=== PATIENT | female | born 1990 | race Native Hawaiian/Other Pacific Islander ===

== ENCOUNTER 2016-11-20 09:32 | Emergency (ER) | payer OTHER ==
[~2016-11-20] VITALS: Ht 160 cm; Wt 58.1 kg
[2016-11-20 10:00] VITALS: BP 128/77
--- NOTE | 2016-11-20 10:00 | NUR ---
PATIENT PRESENTS TO ED WITH C/O RIGHT ABDOMINAL PAIN X 3 DAYS, ON HER PERIOD STILL SPOTTING X 2 WKS; PER PT VAG WHITE FOUL SMELLING DISCHARGE; DENIES N/V/D HX; DENIES RX; DENIES DENIES N/V/D; SKIN IS PINK/WARM/DRY; AAOX4 WITH EVEN AND STEADY GAIT; LUNGS CLEAR BL; HR EVEN AND REGULAR; PT DENIES ANY FEVER, CP, SOB, OR COUGH AT THIS TIME; PATIENT STATES PAIN OF 9/10 AT THIS TIME; VSS; PATIENT POSITIONED FOR COMFORT; HOB ELEVATED; BEDRAILS UP X2; BED DOWN. ER MD MADE AWARE OF PT STATUS.
[2016-11-20 10:17] LABS: APPEARANCE,URINE SL CLOUDY (CLEAR); BILIRUBIN,URINE NEGATIVE (NEGATIVE); BLOOD, URINE 3+ (NEGATIVE); COLOR,URINE YELLOW (YELLOW); LEUKOCYTE ESTERASE ,URINE 2+ (NEGATIVE); NITRITE, URINE NEGATIVE (NEGATIVE); PROTEIN,URINE 1+ (NEGATIVE); UGLUCOSE NEGATIVE (NEGATIVE); UROBILINOGEN,URINE 0.2 EU/dL (0.2 - 1)
[2016-11-20] MEDS ORDERED: IBUPROFEN 400 MG TAB PO ONE (10:20)
[2016-11-20 10:26] LABS: RBC,URINE 3-10 (FEW) /HPF (0-5); WBC,URINE 20-60 /HPF (0-5)
[2016-11-20 10:27] LABS: BACTERIA,URINE 2+ /HPF (None Seen)
[2016-11-20 10:28] LABS: MUCUS,URINE 1+ /LPF (None Seen); URINE AMORPHOUS URATE 1+ /HPF (None Seen)
[2016-11-20] MEDS ORDERED: cefTRIAXone 250 MG in LIDOCAINE 1% ED 0.9 ML IM ONE (10:30)
--- NOTE | 2016-11-20 10:40 | NUR ---
DR MORE AT BEDSIDE FOR PELVIC EXAM
[2016-11-20 12:25] VITALS: BP 116/66
--- NOTE | 2016-11-20 12:25 | NUR ---
Patient discharged with v/s stable. Written and verbal after care instructions given and explained. Patient alert, oriented and verbalized understanding of instructions. Ambulatory with steady gait. All questions addressed prior to discharge. ID band removed. Patient advised to follow up with PMD. Rx of CEPHALEXIN, NAPROSYN, DOXYCYLINE given. Patient educated on indication of medication including possible reaction and side effects. Opportunity to ask questions provided and answered.
[2016-11-22 06:27] LABS: CHLAMYDIA TRACHOMATIS AMP DNA Positive (Negative)
== END 2016-11-20 12:25 | disposition home or self-care (01) ==
LOC: MED 09:32
DX: N73.9 Female pelvic inflammatory disease, unspecified (principal); N39.0 Urinary tract infection, site not specified
CPT/HCPCS: 36415; 76856; 81001; 81025; 87086; 87205; 87210; 96372; 99285; J0696; J2001; Q0092; 87491